=== PATIENT | female | born 1995 | race Caucasian/White ===

== ENCOUNTER 2021-03-24 20:51 | Emergency (ER) | payer OTHER ==
[2021-03-24] MEDS ORDERED: ROPIVACAINE 0.5% PF 20 ML VIAL SUBQ STA (21:22)
--- NOTE | 2021-03-24 21:54 | ED Physician Documentation ---
History of Present Illness - Stated complaint Stated Complaint: R FOOT BLEEDING - Chief complaint Chief Complaint: Ext Problem - History obtained from History obtained from: Patient - History of Present Illness Timing: Today Pain level max: 0 Pain level now: 0 - Additonal information Additional information: Patient is a 25-year-old female, type I diabetic who presents to the emergency department complaining of pus and bleeding from the right great toe. She states she was seen at a walk-in clinic and started on antibiotics for a "toe infection". Does not recall any trauma but does have neuropathy in her feet. Nothing makes it better or worse. Does not recall any injury. Review of Systems Constitutional: denies: Fever, Chills GI: denies: Vomiting, Diarrhea Skin: denies: Rash PD PAST MEDICAL HISTORY - Past Medical History Past Medical History: Yes Cardiovascular: None Respiratory: None Neuro: Peripheral neuropathy Endocrine/Autoimmune: Type 1 diabetes GI: None VP ANALYSIS: None : None HEENT: None Psych: None Musculoskeletal: None Derm: None - Past Surgical History Past Surgical History: No - Present Medications Home Medications: Ambulatory Orders Medication Instructions Recorded Confirmed Chlorhexidine Gluconate [Hibiclens] 15 ml TP BID PRN #1 bottle 03/24/21 Gabapentin [Gralise] 300 mg PO TID 03/24/21 03/24/21 Insulin Aspart [NovoLOG] 15 unit SQ TID 03/24/21 03/24/21 Insulin Glargine [Lantus Solostar] 15 unit SQ DAILY 03/24/21 03/24/21 cephALEXin [Keflex] 250 mg PO DAILY 03/24/21 03/24/21 - Allergies Allergies/Adverse Reactions: Allergies Allergy/AdvReac Type Severity Reaction Status Date / Time No Known Drug Allergies Allergy Verified 03/24/21 21:01 - Social History Does the pt smoke?: No Smoking Status: Never smoker Does the pt drink ETOH?: No Does the pt have substance abuse?: No Substance Use and Type: CBD oil / Products - Immunizations Immunizations are current?: Yes - POLST Patient has POLST: No PD ED PE NORMAL - Vitals Vital signs reviewed: Yes - General General: Alert and oriented X 3, No acute distress - HEENT HEENT: Moist mucous membranes - Derm Derm: Warm and dry - Extremities Extremities: Other (small paronychia to the R great toe. erythema and small drainage. no significant cellulitis.) - Neuro Neuro: Alert and oriented X 3 Results - Vitals Vitals: Vital Signs - 24 hr 03/24/21 03/24/21 03/24/21 20:55 21:17 21:59 Temperature 36.9 C 36.9 C 36.8 C Heart Rate 99 99 82 Respiratory 16 16 16 Rate Blood Pressure 111/81 H 111/81 H 115/79 O2 Saturation 100 100 99 Oxygen O2 Source Room air Procedures - General procedure General procedure: Right great toe - Digital block performed with 0.5% ropivacaine. Excellent anesthesia achieved. No complications. The blunt edge of an 11 blade was then placed under the nail folds and debris and pus removed. No complications. PD MEDICAL DECISION MAKING - ED course Complexity details: reviewed results, re-evaluated patient, considered di fferential, d/w patient ED course: The paronychia was drained, remainder of the nail folds were swept with the blunt edge of a 11 blade. Debris removed. We will have her soak the toe 2-3 times per day. Will prescribe chlorhexidine to help with the soaking. Patient will need to follow-up with podiatry for further care. No cellulitis. Patient counseled regarding signs and symptoms for which I believe and urgent re- evaluation would be necessary. Patient with good understanding of and agreement to plan and is comfortable going home at this time This document was made in part using voice recognition software. While efforts are made to proofread this document, sound alike and grammatical errors may occur. Departure - Departure Disposition: 01 Home, Self Care Clinical Impression: Paronychia Condition: Good Instructions: ED Fingernail Infec Follow-Up: your,doctor in 1 week [Other] Anne-Marie Chi, DPM [Provider Admit Priv/Credential] - Harrison Berry DPM [Physician No Access] - Prescriptions: Chlorhexidine Gluconate [Hibiclens] 15 ml TP BID PRN #1 bottle PRN Reason: paronychia Comments: The warm water soaks 3 times per day. You can use the chlorhexidine as well. This will help to clean the nailbeds and keep them clean. Follow-up with podiatry for further care. Return if you worsen. Discharge Date/Time: 03/24/21 21:59
[2021-03-24 22:01] VITALS: BP 115/79
== END 2021-03-24 21:59 | disposition home or self-care (01) ==
LOC: ED 20:51
DX: L03.031 Cellulitis of right toe (principal); E10.42 Type 1 diabetes mellitus with diabetic polyneuropathy; Z79.4 Long term (current) use of insulin
CPT/HCPCS: 64450; 96372; 99283; J2795

== ENCOUNTER 2021-04-28 12:27 | Emergency (ER) | payer OTHER ==
[2021-04-28 12:38] VITALS: BP 110/85
--- NOTE | 2021-04-28 13:09 | ED Physician Documentation ---
History of Present Illness - Stated complaint Stated Complaint: RT GREAT TOE INFECTION - Chief complaint Chief Complaint: Trauma Ext - History obtained from History obtained from: Patient - Additonal information Additional information: 25 yo F w/ pmh of DM1 presents with right great nailbed infection. She had a toenail removed at another location and had been doing routine Post removal care including soaking and applying Neosporin. She noted some transient loss from on the nailbed yesterday and it seems to be worse today. She denies any erythema or swelling of the toe. She has severe peripheral neuropathy this does not feel the area. She is not on oral antibiotics.She denies any fever, chills, weakness, and has no history of cellulitis or abscess. Review of Systems Ten Systems: 10 systems reviewed and negative Constitutional: reports: Reviewed and negative Eyes: reports: Reviewed and negative Ears: reports: Reviewed and negative Nose: reports: Reviewed and negative Cardiac: reports: Reviewed and negative Respiratory: reports: Reviewed and negative GI: reports: Reviewed and negative : reports: Reviewed and negative Skin: reports: Lesions, Other (Toenail infection) Musculoskeletal: reports: Reviewed and negative Neurologic: reports: Reviewed and negative Psychiatric: reports: Reviewed and negative Endocrine: reports: Reviewed and negative PD PAST MEDICAL HISTORY - Past Medical History Past Medical History: Yes Cardiovascular: None Respiratory: None Neuro: Peripheral neuropathy Endocrine/Autoimmune: Type 1 diabetes GI: None 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 : None HEENT: None Psych: None Musculoskeletal: None Derm: None - Past Surgical History Past Surgical History: No - Present Medications Home Medications: Ambulatory Orders Medication Instructions Recorded Confirmed Chlorhexidine Gluconate [Hibiclens] 15 ml TP BID PRN #1 bottle 03/24/21 Gabapentin [Gralise] 300 mg PO TID 03/24/21 03/24/21 Insulin Aspart [NovoLOG] 15 unit SQ TID 03/24/21 03/24/21 Insulin Glargine [Lantus Solostar] 15 unit SQ DAILY 03/24/21 03/24/21 cephALEXin [Keflex] 250 mg PO DAILY 03/24/21 03/24/21 Sulfamethox/Trimeth 800/160 1 each PO BID #14 tablet 04/28/21 [Bactrim Ds 800/160] cephALEXin [Keflex] 500 mg PO Q6H #28 04/28/21 - Allergies Allergies/Adverse Reactions: Allergies Allergy/AdvReac Type Severity Reaction Status Date / Time No Known Drug Allergies Allergy Verified 04/28/21 12:38 - Social History Does the pt smoke?: No Smoking Status: Never smoker Does the pt drink ETOH?: No Does the pt have substance abuse?: No - Immunizations Immunizations are current?: Yes - POLST Patient has POLST: No PD ED PE NORMAL - Vitals Vital signs reviewed: Yes - General General: Alert and oriented X 3, No acute distress, Well developed/nourished - HEENT HEENT: Atraumatic, Moist mucous membranes - Cardiac Cardiac: RRR, No murmur - Respiratory Respiratory: No respiratory distress, Clear bilaterally - Derm Derm: Other (There is evidence of right great toenail removal and the nailbed has some purulent appearing slough on it with very mild localized erythema. The toe is not swollen and there is no streaking redness into the base of the toe or the foot.) - Extremities Extremities: No deformity, No tenderness to palpate, Normal ROM s pain, No edema - Neuro Neuro: Alert and oriented X 3, No motor deficit, No sensory deficit, Normal speech Eye Opening: Spontaneous Motor: Obeys Commands Verbal: Oriented GCS Score: 15 - Psych Psych: Normal mood, Normal affect Results - Vitals Vitals: Vital Signs - 24 hr 04/28/21 12:35 Temperature 36.2 C L Heart Rate 96 Respiratory 16 Rate Blood Pressure 110/85 H O2 Saturation 99 Oxygen O2 Source Room air PD MEDICAL DECISION MAKING - ED course Complexity details: re-evaluated patient, d/w patient ED course: This is a 25-year-old female with type 1 diabetes who presents several days status post right great toenail removal. She has localized infection of the right nailbed. Does not appear to extend into the base of the toe or the foot. She is afebrile and has no systemic symptoms. Will treat with wound care, patient will clean the wound daily and apply a Iodine-soaked gauze to the wound and then cover with dry gauze. She will change the dressing daily or twice daily. She will be placed on Keflex and Bactrim given her history of type 1 diabetes. I reviewed return precautions if the wound did not heal or if they have seem to be any spreading infection such as redness, swelling into the base of the toe or the foot or systemic symptoms or otherwise new concerns. Departure - Departure Disposition: 01 Home, Self Care Clinical Impression: Infection of toenail Condition: Good Prescriptions: Sulfamethox/Trimeth 800/160 [Bactrim Ds 800/160] 1 each PO BID #14 tablet cephALEXin [Keflex] 500 mg PO Q6H #28 Comments: Please clean with warm water and then apply iodine soaked gauze and cover with plain gauze. Take antibiotics as prescribed. Return to the ER if you have increased redness, swelling, or feel that the infection is worsening.
[2021-04-28] MEDS ORDERED: POVIDONE IODINE 10% TOP SCH (14:00)
== END 2021-04-28 13:15 | disposition home or self-care (01) ==
LOC: ED 12:27
DX: L03.031 Cellulitis of right toe (principal); E10.42 Type 1 diabetes mellitus with diabetic polyneuropathy; Z79.4 Long term (current) use of insulin
CPT/HCPCS: 99282; 99283; A9270

== ENCOUNTER 2021-04-30 03:47 | Emergency (ER) | payer OTHER ==
[2021-04-30] MEDS ORDERED: ONDANSETRON 4 MG/2 ML VIAL IVP STA (03:59)
[2021-04-30] MEDS ORDERED: SODIUM CHLORIDE 0.9% 1,000 ML IV STA ×3 (03:59→05:32)
[2021-04-30] MEDS ORDERED: FAMOTIDINE 20 MG/2 ML VIAL IVP STA (03:59)
--- NOTE | 2021-04-30 04:00 | ED Physician Documentation ---
PD HPI NVD - Stated complaint Stated Complaint: MED REACTION/DIABETIC - History obtained from History obtained from: Patient - History of Present Illness Timing - onset: How many days ago (08/06) Timing - duration: Days (08/06) Timing - details: Abrupt onset, Still present (worse the past several hours.), Waxing and waning Associated symptoms: Other (nausea with repetitive vomiting now. Has been feeling nauseated, weak, and lightheaded with sugars running higher in the 200- 300s the past few days. Seen few days ago for toenail bed infection, with removal nail, but no abx. Seen in ER 04/28 and Rx Bactrim/Keflex for purulence. N/V that evening.). No: Fever, Abdominal pain Contributing factors: Recent antibiotics, Diabetes. No: Sick contact, Bad food Similar symptoms before: Diagnosis (symptoms similar to DKA in the past, which have been triggered by infections before.) Recently seen: Clinic, Emergency Dept Review of Systems Constitutional: denies: Fever, Chills Nose: denies: Rhinorrhea / runny nose, Congestion Throat: denies: Sore throat Respiratory: denies: Cough GI: reports: Nausea, Vomiting. denies: Abdominal Pain, Constipation, Diarrhea, Hematemesis : denies: Dysuria Neurologic: reports: Generalized weakness, Numbness (neuropathy in legs chronically.). 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 : None HEENT: None Psych: None Musculoskeletal: None Derm: None - Past Surgical History Past Surgical History: No - Present Medications Home Medications: Ambulatory Orders Medication Instructions Recorded Confirmed Chlorhexidine Gluconate [Hibiclens] 15 ml TP BID PRN #1 bottle 03/24/21 04/30/21 Gabapentin [Gralise] 300 mg PO TID 03/24/21 04/30/21 Insulin Aspart [NovoLOG] 15 unit SQ TID 03/24/21 04/30/21 Insulin Glargine [Lantus Solostar] 15 unit SQ DAILY 03/24/21 04/30/21 Sulfamethox/Trimeth 800/160 1 each PO BID #14 tablet 04/28/21 04/30/21 [Bactrim Ds 800/160] cephALEXin [Keflex] 500 mg PO Q6H #28 04/28/21 04/30/21 - Allergies Allergies/Adverse Reactions: Allergies Allergy/AdvReac Type Severity Reaction Status Date / Time No Known Drug Allergies Allergy Verified 04/30/21 03:57 - Social History Does the pt smoke?: No Smoking Status: Never smoker Does the pt drink ETOH?: No Does the pt have substance abuse?: No - Immunizations Immunizations are current?: Yes - POLST Patient has POLST: No PD ED PE NORMAL - Vitals Vital signs reviewed: Yes - General General: Alert and oriented X 3, Well developed/nourished, Other (active heaving from nausea with small amounts stomach contents, does not appear bloody. Pale coloration. ) - HEENT HEENT: Pharynx benign. No: Moist mucous membranes - Neck Neck: Supple, no meningeal sign, No adenopathy - Cardiac Cardiac: No: RRR (tachycardic but regular.) - Respiratory Respiratory: Clear bilaterally - Abdomen Abdomen: Normal bowel sounds, Soft, Non distended, No organomegaly, Other (some tender epigastric without guarding.) - Back Back: No CVA TTP - Derm Derm: Warm and dry. No: Normal color (pale) - Neuro Neuro: Alert and oriented X 3, No motor deficit, Normal speech Results - Vitals Vitals: Vital Signs - 24 hr 04/30/21 04/30/21 04/30/21 03:53 04:16 04:30 Temperature 36.0 C L Heart Rate 108 H 99 Respiratory 28 H 28 H 20 Rate Blood Pressure 160/116 H 131/93 H 140/91 H O2 Saturation 100 100 100 04/30/21 04/30/21 05:00 06:24 Temperature Heart Rate 96 90 Respiratory 16 17 Rate Blood Pressure 134/84 H 127/91 H O2 Saturation 100 100 Oxygen O2 Source Room air - Labs Labs: Laboratory Tests 04/30/21 04/30/21 04/30/21 03:52 04:05 04:05 WBC 13.0 H RBC 4.41 Hgb 13.6 Hct 38.9 MCV 88.2 MCH 30.8 MCHC 35.0 RDW 11.9 L Plt Count 411 MPV 10.5 Neut # (Auto) 11.1 H Lymph # (Auto) 1.6 [place] # (Auto) 0.2 Eos # (Auto) 0.0 Baso # (Auto) 0.1 Absolute Nucleated RBC 0.00 Nucleated RBC % 0.0 VBG pH VBG pCO2 VBG pO2 VBG HCO3 VBG Total CO2 VBG O2 Saturation VBG Base Excess Sodium 132 L Potassium 4.3 Chloride 98 L Carbon Dioxide 18 L Anion Gap 16.0 H BUN 13 Creatinine 0.8 Estimated GFR (MDRD) 87 L Glucose 405 H POC Whole Bld Glucose 381 H Calcium 9.6 Magnesium 1.6 L Total Bilirubin 1.8 H AST 17 ALT 16 Alkaline Phosphatase 57 Total Protein 7.6 Albumin 4.3 Globulin 3.3 Albumin/Globulin Ratio 1.3 Lipase 21 L Serum Ketones NEGATIVE 04/30/21 04/30/21 04/30/21 04:05 04:41 06:22 WBC RBC Hgb Hct MCV MCH MCHC RDW Plt Count MPV Neut # (Auto) Lymph # (Auto) [place] # (Auto) Eos # (Auto) Baso # (Auto) Absolute Nucleated RBC Nucleated RBC % VBG pH 7.455 H 7.376 VBG pCO2 29.2 L 32.2 L VBG pO2 116.3 H 72.9 H VBG HCO3 20.1 L 18.4 L VBG Total CO2 21.0 L 19.4 L VBG O2 Saturation 98.4 H 94.5 H VBG Base Excess -2.5 L -5.7 L Sodium Potassium Chloride Carbon Dioxide Anion Gap BUN Creatinine Estimated GFR (MDRD) Glucose POC Whole Bld Glucose 282 H Calcium Magnesium Total Bilirubin AST ALT Alkaline Phosphatase Total Protein Albumin Globulin Albumin/Globulin Ratio Lipase Serum Ketones PD MEDICAL DECISION MAKING - ED course Complexity details: reviewed results (not in DKA. Presume gastritis related to recent meds. ), re-evaluated patient (persistent nausea and vomiting. Repeated doses of meds here. Will reassess after more meds. ), considered differential (consider GI side effects of meds vs DKA symptoms or other GE cause. ), d/w patient
[2021-04-30 04:14] LABS: BASOPHILS # (AUTO) 0.1 10^3/uL (0.0-0.1); BASOPHILS % (AUTO) 0.5 %; EOSINOPHILS % (AUTO) 0.1 %; HCT - HEMATOCRIT 38.9 % (37.0-47.0); HGB - HEMOGLOBIN 13.6 g/dL (12.0-16.0); LYMPHOCYTES # (AUTO) 1.6 10^3/uL (1.5-3.5); LYMPHOCYTES % (AUTO) 12.5 %; MEAN CORPUSCULAR HEMOGLOBIN 30.8 pg (27.0-31.0); MEAN CORPUSCULAR VOLUME 88.2 fL (81.0-99.0); MEAN PLATELET VOLUME 10.5 fL (7.9-10.8); MONOCYTES # (AUTO) 0.2 10^3/uL (0.0-1.0); MONOCYTES % (AUTO) 1.8 %; NEUTROPHILS # (AUTO) 11.1 10^3/uL (1.5-6.6); NEUTROPHILS % (AUTO) 84.9 %; PLT - PLATELET COUNT 411 10^3/uL (130-450); RED BLOOD COUNT 4.41 10^6/uL (4.20-5.40); RED CELL DISTRIBUTION WIDTH 11.9 % (12.0-15.0)
[2021-04-30 04:15] LABS: VBG BASE EXCESS -2.5 mmol/L (-2 - +2); VBG HCO3 20.1 mmol/L (23-28); VBG OXYGEN SATURATION 98.4 % (60-80); VBG PCO2 29.2 mmHg (41-51); VBG PH 7.455 (7.31-7.41); VBG PO2 116.3 mmHg (25-47)
[2021-04-30 04:20] LABS: KETONES, SERUM (ACETEST) NEGATIVE (NEGATIVE)
[2021-04-30] MEDS ORDERED: DROPERIDOL 5 MG/2 ML VIAL IVP STA ×2 (04:22→05:32)
[2021-04-30 04:29] LABS: ALBUMIN 4.3 g/dL (3.2-5.5); ALBUMIN/GLOBULIN RATIO 1.3 (1.0-2.2); ALKALINE PHOSPHATASE 57 IU/L (42-121); ALT ALANINE AMINOTRANSFERASE 16 IU/L (10-60); AST ASPARTATE AMINOTRANSFERASE 17 IU/L (10-42); BILIRUBIN,TOTAL 1.8 mg/dL (0.2-1.0); BUN - BLOOD UREA NITROGEN 13 mg/dL (6-20); CALCIUM 9.6 mg/dL (8.5-10.3); CARBON DIOXIDE - CO2 18 mmol/L (21-32); CHLORIDE 98 mmol/L (101-111); CREATININE 0.8 mg/dL (0.4-1.0); GFR - MDRD 87 (>89); GLUCOSE 405 mg/dL (70-100); LIPASE 21 U/L (22-51); MAGNESIUM 1.6 mg/dL (1.7-2.8); POTASSIUM 4.3 mmol/L (3.5-5.0); SODIUM 132 mmol/L (135-145); TOTAL PROTEIN 7.6 g/dL (6.7-8.2)
[2021-04-30 04:47] LABS: VBG BASE EXCESS -5.7 mmol/L (-2 - +2); VBG HCO3 18.4 mmol/L (23-28); VBG OXYGEN SATURATION 94.5 % (60-80); VBG PCO2 32.2 mmHg (41-51); VBG PH 7.376 (7.31-7.41); VBG PO2 72.9 mmHg (25-47); VBG TOTAL CO2 19.4 mmol/L (24-29)
[2021-04-30] MEDS ORDERED: INSULIN REGULAR HUMAN 100 UNIT/1 ML 10 ML MDV IVP STA ×2 (04:55→08:41)
[2021-04-30] MEDS ORDERED: PROMETHAZINE INJ 12.5 MG in SODIUM CHLORIDE 0.9% 50 ML IV STA (06:23)
[2021-04-30] MEDS ORDERED: PROMETHAZINE 25 MG/1 ML VIAL ONE (06:32)
[2021-04-30 07:33] LABS: BILIRUBIN,URINE NEGATIVE (NEGATIVE); GLUCOSE, URINE (UA) >=1000 mg/dL (NEGATIVE); KETONES,URINE (UA) >=80 mg/dL (NEGATIVE); LEUKOCYTE ESTERASE, URINE NEGATIVE (NEGATIVE); NITRITE,URINE NEGATIVE (NEGATIVE); OCCULT BLOOD,URINE TRACE-INTA (NEGATIVE); PROTEIN,URINE NEGATIVE (NEGATIVE); UROBILINOGEN,URINE 0.2 (NORMAL) E.U./dL (NORMAL)
[2021-04-30 07:38] LABS: CLARITY,URINE CLEAR (CLEAR)
[2021-04-30 07:39] LABS: HCG UR QUAL NEGATIVE
[2021-04-30] MEDS ORDERED: LIDOCAINE VISCOUS 2% 15 ML UDC MM STA (08:08)
[2021-04-30] MEDS ORDERED: MAG HYDROX/AL HYDROX/SIMETH 30 ML UDC PO STA (08:08)
[2021-04-30] MEDS ORDERED: METOCLOPRAMIDE 10 MG/2 ML VIAL IVP STA (08:14)
--- NOTE | 2021-04-30 08:48 | ED Physician Documentation ---
ED Addendum - Addendum Addendum: 04/30/21 08:46 25-year-old female with a history of type 1 diabetes has been into the emergency department several days ago for an infection in her left great toe and she was placed onto Keflex and Septra. She began to vomit last night. She has had uncontrollable vomiting and nausea and has come to the emergency department at about 4:00 in the morning and she was attended to by Dr. Orona who administered intravenous fluids and antiemetics and this was unsuccessful in controlling the patient's symptoms of nausea. She was given Inapsine Zofran and Phenergan, continued to have nausea and vomiting despite not being in DKA. The patient states that the last time this happened to her she was in DKA. Her toe seems some better. I have examined the patient and her toe and find intractable vomiting and hiccups. We tried reglan and viscous lido/mylanta again without success. She has received IV saline and 4 units of insulin. She is given another 4 units of insulin and the hospitalist is consulted for intractable vomiting. 04/30/21 08:49 04/30/21 14:58 The hospitalist recommended further treatment in the emergency department. I reviewed the patient's laboratory studies and we did order a urine tox screen which was positive for cannabis. She had told Dr. Orona that she did not use cannabis. I confronted the patient on this and she admitted to using cannabis and I described to her the cannabis hyperemesis syndrome and have encouraged her to acknowledge her cannabis use if she has symptoms recurrent like this. She did receive a dose of Haldol and Benadryl here in the emergency department with resolution of her symptoms. She had been given 4 other antiemetics prior to this without improvement. I took this as a sign that this was likely cannabis hyperemesis. I discussed the findings with the patient she will return as needed.
[2021-04-30 08:55] LABS: MUDS CUTOFF CONCENTRATIONS CUTOFF CONC BELOW:
[2021-04-30 09:17] LABS: AMPHETAMINE SCREEN,URINE NEGATIVE (NEGATIVE); BARBITURATE SCREEN,UR NEGATIVE (NEGATIVE); BENZODIAZEPINES SCREEN, URINE NEGATIVE (NEGATIVE); COCAINE SCREEN URINE NEGATIVE (NEGATIVE); METHADONE SCREEN, URINE NEGATIVE (NEGATIVE); METHAMPHETAMINES SCREEN, URINE NEGATIVE (NEGATIVE); OPIATE SCREEN, URINE NEGATIVE (NEGATIVE); OXYCODONE SCREEN, URINE NEGATIVE (NEGATIVE); PROPOXYPHENE SCREEN, URINE NEGATIVE (NEGATIVE); THC CANNABINOID SCREEN, URINE POSITIVE (NEGATIVE); TRICYCLIC ANTIDEPRESSANT,URINE NEGATIVE (NEGATIVE)
[2021-04-30] MEDS ORDERED: HALOPERIDOL 5 MG/ML VIAL IVP ONE (10:08)
[2021-04-30] MEDS ORDERED: diphenhydrAMINE INJ 50 MG/ML VIAL IVP STA (10:09)
[2021-04-30 11:38] VITALS: BP 113/64
== END 2021-04-30 11:45 | disposition home or self-care (01) ==
LOC: ED 03:47
DX: E10.43 Type 1 diabetes mellitus with diabetic autonomic (poly)neuropathy (principal); K31.84 Gastroparesis; E10.65 Type 1 diabetes mellitus with hyperglycemia; E10.42 Type 1 diabetes mellitus with diabetic polyneuropathy; Z79.4 Long term (current) use of insulin
CPT/HCPCS: 36415; 80053; 80306; 81003; 81025; 82009; 82803; 83690; 83735; 85025; 96361; 96365; 96375; 96376; 99284; 99285; A9270; J1200; J1815; J2765; J7040; 81001; 87086

== ENCOUNTER 2023-08-02 12:44 | Emergency (ER) | payer OTHER ==
[2023-08-02 13:01] VITALS: BP 134/89; O2SAT 94
[2023-08-02 14:26] LABS: BASOPHILS # (AUTO) 0.1 10^3/uL (0.0-0.1); BASOPHILS % (AUTO) 0.4 %; EOSINOPHILS % (AUTO) 0.2 %; HCT - HEMATOCRIT 44.5 % (37.0-47.0); HGB - HEMOGLOBIN 14.7 g/dL (12.0-16.0); LYMPHOCYTES # (AUTO) 3.3 10^3/uL (1.5-3.5); LYMPHOCYTES % (AUTO) 23.9 %; MEAN CORPUSCULAR HEMOGLOBIN 28.5 pg (27.0-31.0); MEAN CORPUSCULAR VOLUME 86.2 fL (81.0-99.0); MEAN PLATELET VOLUME 9.6 fL (7.9-10.8); MONOCYTES # (AUTO) 0.6 10^3/uL (0.0-1.0); NEUTROPHILS # (AUTO) 9.7 10^3/uL (1.5-6.6); NEUTROPHILS % (AUTO) 71.1 %; PLT - PLATELET COUNT 473 10^3/uL (130-450); RED BLOOD COUNT 5.16 10^6/uL (4.20-5.40); RED CELL DISTRIBUTION WIDTH 13.2 % (12.0-15.0); WHITE BLOOD COUNT 13.6 x10^3/uL (4.8-10.8)
[2023-08-02 14:31] LABS: VBG PCO2 38.7 mmHg (41-51); VBG PH 7.392 (7.31-7.41); VBG PO2 41.7 mmHg (25-47); VBG TOTAL CO2 24.2 mmol/L (24-29)
[2023-08-02 14:32] LABS: VBG BASE EXCESS -1.6 mmol/L (-2 - +2); VBG OXYGEN SATURATION 80.4 % (60-80)
[2023-08-02 14:41] LABS: KETONES, SERUM (ACETEST) NEGATIVE (NEGATIVE)
[2023-08-02 14:45] LABS: ALBUMIN 4.5 g/dL (3.2-5.5); ALBUMIN/GLOBULIN RATIO 1.2 (1.0-2.2); ALKALINE PHOSPHATASE 89 IU/L (42-121); ALT ALANINE AMINOTRANSFERASE 14 IU/L (10-60); AST ASPARTATE AMINOTRANSFERASE 11 IU/L (10-42); BILIRUBIN,TOTAL 0.7 mg/dL (0.2-1.0); BUN - BLOOD UREA NITROGEN 15 mg/dL (6-20); CARBON DIOXIDE - CO2 25 mmol/L (21-32); CHLORIDE 102 mmol/L (101-111); CREATININE 0.7 mg/dL (0.6-1.3); GFR - MDRD 100 (>89); GLUCOSE 246 mg/dL (74-104); MAGNESIUM 1.9 mg/dL (1.7-2.3); SODIUM 135 mmol/L (135-145); TOTAL PROTEIN 8.2 g/dL (6.4-8.9)
[2023-08-02 14:49] LABS: LIPASE < 10 U/L (11-82)
[2023-08-02] MEDS ORDERED: SODIUM CHLORIDE 0.9% 1,000 ML IV STA (18:24)
--- NOTE | 2023-08-02 21:25 | ED Physician Documentation ---
History of Present Illness - Stated complaint Stated Complaint: VOMITING/HIGH BLOOD SUGAR - Chief complaint Chief Complaint: General - Additonal information Additional information: Patient not seen. She left after triage, and was not seen by a provider. 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 : None HEENT: None Psych: None Musculoskeletal: None Derm: None - Past Surgical History Past Surgical History: No - Present Medications Home Medications: Ambulatory Orders Medication Instructions Recorded Confirmed Chlorhexidine Gluconate [Hibiclens] 15 ml TP BID PRN #1 bottle 03/24/21 04/30/21 Gabapentin [Gralise] 300 mg PO TID 03/24/21 04/30/21 Insulin Aspart [NovoLOG] 15 unit SQ TID 03/24/21 04/30/21 Insulin Glargine [Lantus Solostar] 15 unit SQ DAILY 03/24/21 04/30/21 Sulfamethox/Trimeth 800/160 1 each PO BID #14 tablet 04/28/21 04/30/21 [Bactrim Ds 800/160] cephALEXin [Keflex] 500 mg PO Q6H #28 04/28/21 04/30/21 Promethazine [Phenergan] 25 mg PO Q6H PRN #10 tab 04/30/21 - Allergies Allergies/Adverse Reactions: Allergies Allergy/AdvReac Type Severity Reaction Status Date / Time clindamycin Allergy Emesis Verified 08/02/23 12:56 - Social History Does the pt smoke?: No Smoking Status: Never smoker Does the pt drink ETOH?: No Does the pt have substance abuse?: No - Immunizations Immunizations are current?: Yes - POLST Patient has POLST: No Results - Vitals Vitals: Vital Signs - 24 hr 08/02/23 12:56 Temperature 36.8 C Heart Rate 100 Respiratory 16 Rate Blood Pressure 134/89 H O2 Saturation 94 Oxygen O2 Source Room air - Labs Labs: Laboratory Tests 08/02/23 08/02/23 08/02/23 14:23 14:23 14:23 WBC 13.6 H RBC 5.16 Hgb 14.7 Hct 44.5 MCV 86.2 MCH 28.5 MCHC 33.0 RDW 13.2 Plt Count 473 H MPV 9.6 Neut # (Auto) 9.7 H Lymph # (Auto) 3.3 [place] # (Auto) 0.6 Eos # (Auto) 0.0 Baso # (Auto) 0.1 Absolute Nucleated RBC 0.00 Nucleated RBC % 0.0 VBG pH 7.392 VBG pCO2 38.7 L VBG pO2 41.7 VBG HCO3 23.0 VBG Total CO2 24.2 VBG O2 Saturation 80.4 H VBG Base Excess -1.6 Sodium 135 Potassium 4.0 Chloride 102 Carbon Dioxide 25 Anion Gap 8.0 BUN 15 Creatinine 0.7 Estimated GFR (MDRD) 100 Glucose 246 H Calcium 10.0 Magnesium 1.9 Total Bilirubin 0.7 AST 11 ALT 14 Alkaline Phosphatase 89 Total Protein 8.2 Albumin 4.5 Globulin 3.7 Albumin/Globulin Ratio 1.2 Lipase < 10 L Serum Ketones NEGATIVE Departure - Departure Disposition: ED Left Without Being Seen Clinical Impression: Blood glucose abnormal Forms: PCP List Discharge Date/Time: 08/02/23 19:00
== END 2023-08-02 19:00 | disposition left against medical advice (07) ==
LOC: ED 12:44
DX: Z53.21 Procedure and treatment not carried out due to patient leaving prior to being seen by health care provider (principal)
CPT/HCPCS: 36415; 80053; 82009; 82803; 83690; 83735; 85025